=== PATIENT | male | born 1990 | race Hispanic/Latino ===

== ENCOUNTER → 2022-09-20 | Day surgery (SDC) | payer SELFPAY ==
[2022-09-13 15:40] LABS: ANION GAP 14.1 mmol/L (8-16); CALCIUM 9.7 mg/dL (8.4-10.2); CREATININE, SERUM 0.99 mg/dL (0.72-1.25); POTASSIUM 4.1 mmol/L (3.5-5.1)
[~2022-09-20] MED LIST: ACETAMINOPHEN-1 EAC4 PO; ALLOPURINOL100 MG PO; CRESTOR10 MG PO; DEXAMETHASONE SOD PHOS INJ 4 MG/ML SDV ONE; EPINEPHRINE HCL 1:1000 1ML 1 MG/ML AMP ONE; FENTANYL CITRATE/PF 100MCG/2 ML INJ IV ONE; FENTANYL CITRATE/PF 100MCG/2 ML INJ ONE; HYDROCHLOROTHIA25 MG PO; LACTATED RINGER'S 1,000 ML ONE; LIDOCAINE HCL 1% LOCAL INJ 20 ML VIAL ONE; LIDOCAINE HCL 2% LOCAL INJ 5 ML SDV VIAL INJ ONE; MIDAZOLAM HCL 2 MG/2 ML VIAL ONE; MOUNJARO15 MG/0.5 SC; MUPIROCIN 2% OINT 22 GM TUBE ONE; NEXLIZET 180-11 EACH PO; ONDANSETRON HCL INJ 2MG/ML 2ML 2 MG/ML VIAL ONE; POVIDONE IODINE 0.05% 0.05 % ML PO ONE; PROPOFOL IV EMULSION 10 MG/ML 20 ML VIAL ONE; SEVOFLURANE INHAL SOLN 250 ML PEN BTL ONE; TRANEXAMIC ACID 0 ML ONE
[2022-09-20 11:08] LABS: HEMOGLOBIN 11.5 g/dL (14.0-18.0)
[2022-09-20 13:10] VITALS: BP 110/74
== END | disposition home or self-care (01) ==
LOC: OR 06:49
PROVIDERS: ATTEND Plastic Surgery
DX: N62 Hypertrophy of breast (principal); L76.32 Postprocedural hematoma of skin and subcutaneous tissue following other procedure; Y83.8 Other surgical procedures as the cause of abnormal reaction of the patient, or of later complication, without mention of misadventure at the time of the procedure; Y92.234 Operating room of hospital as the place of occurrence of the external cause; Z01.810 Encounter for preprocedural cardiovascular examination; Z01.812 Encounter for preprocedural laboratory examination; Z79.899 Other long term (current) drug therapy
CPT/HCPCS: 19300; 21501; 36415 ×2; 80048; 85014; 85018; 93005; C1713; J0171; J0690; J1100; J2001 ×2; J2250; J2405; J2704; J3010; J7121